=== PATIENT | male | born 1960 | race African-American/Black ===

== ENCOUNTER 2022-08-25 07:59 | Emergency (ER) | payer OTHER ==
[2022-08-25] MEDS ORDERED: Carbamide Peroxide 6.5% Otic Drops 15 ml Bottle ONE (09:37)
== END 2022-08-25 12:30 | disposition home or self-care (01) ==
LOC: MADERS 07:59
DX: L89.102 Pressure ulcer of unspecified part of back, stage 2 (principal); L89.229 Pressure ulcer of left hip, unspecified stage